=== PATIENT | female | born 1995 | race African-American/Black ===

== ENCOUNTER 2018-08-10 04:49 | Inpatient (IN) | payer OTHER, MEDICAID ==
[~2018-08-10] VITALS: Ht 162.6 cm; Wt 95.3 kg
[2018-08-10 05:37] LABS: Basophils # (auto) 0 uL; Basophils % (auto) 0.2 % (0.0-2.0); Eosinophils # (auto) 0.1 uL; Eosinophils % (auto) 2.1 % (0.0-7.0); Hematocrit 52.9 % (36.0-46.0); Hemoglobin 17.5 g/dL (12.2-16.2); Lymphocytes # (auto) 1.9 uL; Lymphocytes % (auto) 31.5 % (10.0-50.0); Mean Corpuscular Hemoglobin 27.9 pg (28.0-32.0); Mean Corpuscular Volume 84.7 fL (80.0-100.0); Monocytes # (auto) 0.7 uL; Monocytes % (auto) 11.3 % (0.0-12.0); Neutrophils # (auto) 3.2 uL; Neutrophils % (auto) 54.9 % (37.0-80.0); Nucleated Red Blood Cells % 0.2 %; Platelet Count (auto) 278 10^3/uL (140-450); Red Blood Cells 6.25 10^6/uL (4.0-5.20); Red Cell Distribution Width 14.7 % (11.8-14.3); White Blood Cell 5.9 10^3/uL (4.4-10.8)
[2018-08-10 05:51] LABS: Albumin 3.5 g/dL (3.4-5.0); BUN/Creatinine Ratio 62.1; Calcium 9.5 mg/dL (8.5-10.1); Potassium 3.4 mmol/L (3.5-5.1)
[2018-08-10 05:54] LABS: Bilirubin, Total 0.9 mg/dL (0.2-1.0); Total Protein 9.4 g/dL (6.4-8.2)
[2018-08-10] MEDS ORDERED: SODIUM CHLORIDE 0.9% 1,000 ML IV ONE (07:08)
[2018-08-10 07:47] LABS: Beta HCG, Quantitative < 1 mlU/mL (1-3); Thyroid Stimulating Hormone 3.32 uIU/mL (0.358-3.74)
[2018-08-10 08:37] LABS: Urine Amorphous Crystal MOD /hpf (None Seen); Urine Bacteria FEW /hpf (None Seen); Urine Blood 1+ /uL (Negative); Urine Hyaline Cast MANY /lpf (0 - 2); Urine Mucus FEW (None Seen); Urine Specific Gravity 1.032 (1.001-1.035); Urine WBC 30 /hpf (0 - 5)
[2018-08-10] MEDS ORDERED: PROMETHAZINE HCL 25 MG/ML 1ML IV ONE (08:45)
[2018-08-10] MEDS ORDERED: MORPHINE SULFATE 4 MG/ML SYR/VIAL IV ONE (08:45)
[2018-08-10] MEDS ORDERED: cefTRIAXone 1GM/10ml IVPUSH 10 ML IV ONE (10:30)
[2018-08-10] MEDS ORDERED: SODIUM CHLORIDE 0.9% 1,000 ML IVB ONE (11:47)
[2018-08-10] MEDS ORDERED: ONDANSETRON HCL 4 MG/2 ML VIAL IV PRN (12:15)
[2018-08-10] MEDS ORDERED: DOCUSATE SOD 100 MG CAP PO PRN (12:15)
[2018-08-10] MEDS ORDERED: MORPHINE SULFATE 4 MG/ML SYR/VIAL IV PRN (12:15)
[2018-08-10] MEDS ORDERED: NITROGLYCERIN 0.4 MG SL TAB SL PRN (12:15)
[2018-08-10] MEDS ORDERED: predniSONE 20 MG TAB PO ONE (12:15)
[2018-08-10] MEDS ORDERED: ACETAMINOPHEN 325 MG TAB PO PRN (12:15)
[2018-08-10] MEDS ORDERED: VANCOMYCIN PER PHARMACY 0 MG IV SCH (12:15)
[2018-08-10] MEDS ORDERED: POTASSIUM EFFERVESENT TAB 25 MEQ PO ONE (12:15)
[2018-08-10] MEDS ORDERED: TEMAZEPAM 15 MG CAP PO PRN (12:15)
[2018-08-10] MEDS ORDERED: HYDROcodone-ACET 5/325MG TAB PO PRN (12:15)
[2018-08-10] MEDS: ALBUTEROL SULF 2.5 MG/0.5ML(0.5%) NEB SOLN NEB PRN (12:30)
[2018-08-10] MEDS: IPRATROPIUM BROM 0.5 MG/2.5ML INH SOL NEB PRN (12:30)
[2018-08-10] MEDS: VANCOMYCIN 1GM/250ML 250 ML IV SCH ×2 (13:15→21:01)
[2018-08-10 13:40] VITALS: BP 126/83
[2018-08-10] MEDS: SODIUM CHLOR 0.9% PF (SALINE LOCK) 10ML VIAL/SYR IV SCH ×2 (14:22→21:01)
[2018-08-10] MEDS: IPRATROPIUM BROM 0.5 MG/2.5ML INH SOL NEB SCH ×3 (15:17→23:19)
[2018-08-10] MEDS: ALBUTEROL SULF 2.5 MG/0.5ML(0.5%) NEB SOLN NEB SCH ×3 (15:17→23:19)
[2018-08-10] MEDS: GABAPENTIN 300 MG CAP PO SCH ×2 (16:39→21:02)
[2018-08-10 17:00] VITALS: BP 108/81
[2018-08-10 20:00] VITALS: BP 117/91
[2018-08-10] MEDS: FAMOTIDINE 20 MG TAB PO SCH (21:01)
[2018-08-10] MEDS: MORPHINE SULFATE 4 MG/ML SYR/VIAL IV PRN (21:34)
[2018-08-10 22:14] VITALS: BP 117/91
[2018-08-10 23:49] VITALS: BP 117/91
[2018-08-11] MEDS: IPRATROPIUM BROM 0.5 MG/2.5ML INH SOL NEB SCH ×6 (02:00→23:17)
[2018-08-11] MEDS: ALBUTEROL SULF 2.5 MG/0.5ML(0.5%) NEB SOLN NEB SCH ×6 (02:00→23:17)
[2018-08-11 04:57] VITALS: BP 127/82
[2018-08-11] MEDS: VANCOMYCIN 1GM/250ML 250 ML IV SCH (05:15)
[2018-08-11 06:07] LABS: Basophils % (auto) 0.1 % (0.0-2.0); Eosinophils % (auto) 0.4 % (0.0-7.0); Lymphocytes # (auto) 1.4 uL; Lymphocytes % (auto) 18.8 % (10.0-50.0); Neutrophils # (auto) 5.2 uL; Neutrophils % (auto) 71.7 % (37.0-80.0); Nucleated Red Blood Cells % 0.2 %; White Blood Cell 7.2 10^3/uL (4.4-10.8)
[2018-08-11 06:08] LABS: Basophils # (auto) 0 uL; Eosinophils # (auto) 0 uL; Hemoglobin 14.4 g/dL (12.2-16.2); Mean Corpuscular Hgb Conc. 33.4 g/dL (32.0-36.0); Mean Corpuscular Volume 83.8 fL (80.0-100.0); Monocytes # (auto) 0.6 uL; Platelet Count (auto) 231 10^3/uL (140-450); Red Blood Cells 5.13 10^6/uL (4.0-5.20); Red Cell Distribution Width 14.2 % (11.8-14.3)
[2018-08-11] MEDS: SODIUM CHLOR 0.9% PF (SALINE LOCK) 10ML VIAL/SYR IV SCH ×3 (06:24→21:31)
[2018-08-11] MEDS: GABAPENTIN 300 MG CAP PO SCH ×3 (06:25→21:31)
[2018-08-11 06:28] LABS: Albumin 2.8 g/dL (3.4-5.0); BUN/Creatinine Ratio 57.9; Calcium 8.6 mg/dL (8.5-10.1); Potassium 3.4 mmol/L (3.5-5.1)
[2018-08-11 06:31] LABS: Bilirubin, Total 0.6 mg/dL (0.2-1.0); Total Protein 7.6 g/dL (6.4-8.2)
[2018-08-11 08:30] VITALS: BP 153/96
[2018-08-11] MEDS: FAMOTIDINE 20 MG TAB PO SCH ×2 (08:50→21:31)
[2018-08-11] MEDS: cefTRIAXone 1GM/10ml IVPUSH 10 ML IV SCH (08:50)
[2018-08-11] MEDS: MULTIPLE VITAMIN TAB PO SCH (08:50)
[2018-08-11] MEDS ORDERED: cloNIDine HCL 0.1 MG TAB PO PRN (09:30)
[2018-08-11] MEDS ORDERED: predniSONE 20 MG TAB PO SCH (10:00)
[2018-08-11] MEDS: MORPHINE SULFATE 4 MG/ML SYR/VIAL IV PRN (11:02)
[2018-08-11 12:07] VITALS: BP 137/76
[2018-08-11] MEDS: SODIUM CHLORIDE 0.9% 1,000 ML IV SCH (14:15)
[2018-08-11] MEDS ORDERED: POTASSIUM CHL 20 Meq TABLET PO ONE (14:30)
[2018-08-11 16:23] VITALS: BP 128/70
[2018-08-11] MEDS: methylPREDNISolone SOD SUCC 125 MG/2 ML VL IV SCH (21:30)
[2018-08-11 22:00] VITALS: BP 120/60
[2018-08-11] MEDS: IV IMMUNE GLOBULIN(IVIG) 10% 20G/200ML IV SCH (23:04)
[2018-08-12] MEDS: ALBUTEROL SULF 2.5 MG/0.5ML(0.5%) NEB SOLN NEB SCH ×6 (02:00→22:23)
[2018-08-12] MEDS: IPRATROPIUM BROM 0.5 MG/2.5ML INH SOL NEB SCH ×6 (02:00→22:23)
[2018-08-12] MEDS: MORPHINE SULFATE 4 MG/ML SYR/VIAL IV PRN ×3 (02:02→20:16)
[2018-08-12 05:00] VITALS: BP 118/7
[2018-08-12] MEDS: GABAPENTIN 300 MG CAP PO SCH ×3 (06:00→22:06)
[2018-08-12 06:14] LABS: Basophils # (auto) 0 uL; Basophils % (auto) 0.1 % (0.0-2.0); Eosinophils # (auto) 0 uL; Hematocrit 39.5 % (36.0-46.0); Lymphocytes # (auto) 0.4 uL; Mean Corpuscular Volume 85.1 fL (80.0-100.0); Monocytes # (auto) 0.1 uL; Monocytes % (auto) 1.9 % (0.0-12.0); Neutrophils # (auto) 3.5 uL; Nucleated Red Blood Cells % 0.2 %; Platelet Count (auto) 174 10^3/uL (140-450); Red Blood Cells 4.64 10^6/uL (4.0-5.20); Red Cell Distribution Width 13.9 % (11.8-14.3)
[2018-08-12] MEDS: SODIUM CHLOR 0.9% PF (SALINE LOCK) 10ML VIAL/SYR IV SCH ×3 (06:39→22:06)
[2018-08-12] MEDS: methylPREDNISolone SOD SUCC 125 MG/2 ML VL IV SCH ×3 (06:40→22:05)
[2018-08-12 06:51] LABS: Albumin 2.7 g/dL (3.4-5.0); BUN/Creatinine Ratio 52.4; Bilirubin, Total 0.4 mg/dL (0.2-1.0); Calcium 8.3 mg/dL (8.5-10.1); Magnesium 1.9 mg/dL (1.6-2.6); Total Protein 8.4 g/dL (6.4-8.2)
[2018-08-12] MEDS: cefTRIAXone 1GM/10ml IVPUSH 10 ML IV SCH (08:53)
[2018-08-12 08:58] VITALS: BP 124/66
[2018-08-12] MEDS: SODIUM CHLORIDE 0.9% 1,000 ML IV SCH ×2 (10:27→12:44)
[2018-08-12] MEDS: MULTIPLE VITAMIN TAB PO SCH (10:55)
[2018-08-12] MEDS: FAMOTIDINE 20 MG TAB PO SCH ×2 (10:55→22:06)
[2018-08-12] MEDS ORDERED: MAGNESIUM SULFATE 1GM/100ML 100 ML IV ONE (12:15)
[2018-08-12] MEDS ORDERED: SERT-275 PO (12:24)
[2018-08-12] MEDS ORDERED: [UNRECOGNIZED DRUG - CODE] PO (12:24)
[2018-08-12] MEDS ORDERED: CEPH250C PO (12:24)
[2018-08-12] MEDS ORDERED: METO25TA5 PO (12:24)
[2018-08-12] MEDS ORDERED: PRE1T PO (12:24)
[2018-08-12] MEDS ORDERED: MYCO500T PO (12:24)
[2018-08-12] MEDS ORDERED: OME20GT PO (12:24)
[2018-08-12] MEDS ORDERED: ONDA4TAB5 PO (12:24)
[2018-08-12] MEDS ORDERED: FOLITAB22 PO (12:24)
[2018-08-12] MEDS ORDERED: METH2.5T3 PO (12:24)
[2018-08-12] MEDS ORDERED: TRIATAB3 PO (12:24)
[2018-08-12] MEDS ORDERED: CHOL20007 PO (12:24)
[2018-08-12] MEDS ORDERED: LEVO500T21 PO (12:24)
[2018-08-12] MEDS ORDERED: GABA300C PO (12:24)
[2018-08-12 12:52] VITALS: BP 131/81
[2018-08-12 16:39] VITALS: BP 148/97
[2018-08-12 20:00] VITALS: BP 133/92
[2018-08-12 22:00] VITALS: BP 133/92
[2018-08-12] MEDS: IV IMMUNE GLOBULIN(IVIG) 10% 20G/200ML IV SCH (22:06)
[2018-08-13] MEDS: IPRATROPIUM BROM 0.5 MG/2.5ML INH SOL NEB SCH ×6 (02:00→22:00)
[2018-08-13] MEDS: ALBUTEROL SULF 2.5 MG/0.5ML(0.5%) NEB SOLN NEB SCH ×6 (02:00→22:00)
[2018-08-13 05:00] VITALS: BP 120/71
[2018-08-13] MEDS: SODIUM CHLOR 0.9% PF (SALINE LOCK) 10ML VIAL/SYR IV SCH ×3 (06:38→22:00)
[2018-08-13] MEDS: GABAPENTIN 300 MG CAP PO SCH ×3 (06:39→22:52)
[2018-08-13] MEDS: methylPREDNISolone SOD SUCC 125 MG/2 ML VL IV SCH ×2 (06:39→13:47)
[2018-08-13] MEDS: cefTRIAXone 1GM/10ml IVPUSH 10 ML IV SCH (08:48)
[2018-08-13 09:00] VITALS: BP 122/76
[2018-08-13 11:13] LABS: Basophils # (auto) 0 uL; Eosinophils # (auto) 0 uL; Hematocrit 45.2 % (36.0-46.0); Hemoglobin 14.4 g/dL (12.2-16.2); Lymphocytes # (auto) 0.3 uL; Mean Corpuscular Hemoglobin 27.1 pg (28.0-32.0); Mean Corpuscular Hgb Conc. 31.9 g/dL (32.0-36.0); Mean Corpuscular Volume 84.9 fL (80.0-100.0); Monocytes # (auto) 0.3 uL; Neutrophils # (auto) 4.8 uL; Nucleated Red Blood Cells % 0.1 %; Platelet Count (auto) 242 10^3/uL (140-450); Red Blood Cells 5.33 10^6/uL (4.0-5.20); Red Cell Distribution Width 14.3 % (11.8-14.3); White Blood Cell 5.4 10^3/uL (4.4-10.8)
[2018-08-13] MEDS: MULTIPLE VITAMIN TAB PO SCH (11:23)
[2018-08-13] MEDS: FAMOTIDINE 20 MG TAB PO SCH ×2 (11:23→22:52)
[2018-08-13 11:36] LABS: Potassium 3.9 mmol/L (3.5-5.1)
[2018-08-13] MEDS ORDERED: MORPHINE SULFATE 4 MG/ML SYR/VIAL IV PRN (12:45)
[2018-08-13] MEDS ORDERED: DEXTROSE (50%) 50ML SYRG IV PRN (12:45)
[2018-08-13 13:00] VITALS: BP 138/84
[2018-08-13 15:35] LABS: BUN/Creatinine Ratio 25.6
[2018-08-13 15:36] LABS: Albumin 2.6 g/dL (3.4-5.0); Bilirubin, Total 0.3 mg/dL (0.2-1.0); Total Protein 9.2 g/dL (6.4-8.2)
[2018-08-13 17:00] VITALS: BP 135/99
[2018-08-13] MEDS: InsuLIN REG 1unit/0.01ml Soln (100units/ml) SC SCH ×2 (17:00→22:00)
[2018-08-13] MEDS: ACCU-CHEK COMFORT CURVE STRIP VI SCH ×2 (17:08→22:00)
[2018-08-13] MEDS: HYDROcodone-ACET 5/325MG TAB PO PRN (17:09)
[2018-08-13 19:06] LABS: Calcium 7.9 mg/dL (8.5-10.1); Magnesium 2.4 mg/dL (1.6-2.6)
[2018-08-13] MEDS: SODIUM CHLORIDE 0.9% 1,000 ML IV SCH (19:29)
[2018-08-13 20:43] VITALS: BP 135/99
[2018-08-13 22:00] VITALS: BP 135/87
[2018-08-13] MEDS: IV IMMUNE GLOBULIN(IVIG) 10% 20G/200ML IV SCH (22:00)
[2018-08-14] VITALS (7 sets, daily range): BP systolic 135–158; BP diastolic 77–96
[2018-08-14] MEDS: IPRATROPIUM BROM 0.5 MG/2.5ML INH SOL NEB SCH ×5 (02:00→22:10)
[2018-08-14] MEDS: ALBUTEROL SULF 2.5 MG/0.5ML(0.5%) NEB SOLN NEB SCH ×5 (02:00→22:10)
[2018-08-14] MEDS: SODIUM CHLORIDE 0.9% 1,000 ML IV SCH (04:15)
[2018-08-14] MEDS: ALBUTEROL SULF 2.5 MG/0.5ML(0.5%) NEB SOLN NEB PRN (04:28)
[2018-08-14] MEDS: IPRATROPIUM BROM 0.5 MG/2.5ML INH SOL NEB PRN (04:28)
[2018-08-14 05:57] LABS: Albumin 2.4 g/dL (3.4-5.0); BUN/Creatinine Ratio 46.4; Calcium 7.9 mg/dL (8.5-10.1); Potassium 4.1 mmol/L (3.5-5.1)
[2018-08-14] MEDS: SODIUM CHLOR 0.9% PF (SALINE LOCK) 10ML VIAL/SYR IV SCH ×3 (06:00→20:58)
[2018-08-14 06:11] LABS: Bilirubin, Total 0.4 mg/dL (0.2-1.0); Total Protein 9.3 g/dL (6.4-8.2)
[2018-08-14] MEDS: InsuLIN REG 1unit/0.01ml Soln (100units/ml) SC SCH ×4 (07:00→22:00)
[2018-08-14] MEDS: ACCU-CHEK COMFORT CURVE STRIP VI SCH ×4 (07:02→22:19)
[2018-08-14] MEDS: GABAPENTIN 300 MG CAP PO SCH ×3 (07:19→20:58)
[2018-08-14] MEDS: HYDROcodone-ACET 5/325MG TAB PO PRN ×3 (07:19→15:38)
[2018-08-14 10:07] LABS: Hepatitis B Surface Antibody Positive
[2018-08-14] MEDS: ACETYLCYSTEINE 10 %(100MG/ML) SOL 4ML NEB SCH ×3 (10:20→22:10)
[2018-08-14 10:43] LABS: Hepatitis A Total Antibody Positive
[2018-08-14] MEDS: MULTIPLE VITAMIN TAB PO SCH (10:51)
[2018-08-14] MEDS: predniSONE 20 MG TAB PO SCH (10:51)
[2018-08-14] MEDS: FAMOTIDINE 20 MG TAB PO SCH ×2 (10:52→20:58)
[2018-08-14] MEDS: SERTRALINE HCL 50 MG TAB PO SCH (10:52)
[2018-08-14 13:03] LABS: Hepatitis B Surface Antigen Negative (Negative); Hepatitis C Antibody Negative (Negative)
[2018-08-14 13:04] LABS: Hepatitis B Core Total AB Positive
[2018-08-14] MEDS ORDERED: PIPERACILLIN-TAZOB 3.375GM 100 ML IV ONE (19:30)
[2018-08-14] MEDS ORDERED: VANCOMYCIN PER PHARMACY 0 MG IV SCH (19:30)
[2018-08-14] MEDS ORDERED: VANCOMYCIN 1GM/250ML 250 ML IV ONE (20:00)
[2018-08-14] MEDS ORDERED: KETOROLAC TROMETH 30 MG/ML 1ML VIAL IV ONE (20:45)
[2018-08-14] MEDS ORDERED: AZITHROMYCIN 500MG/ 250ML 250 ML IV ONE (22:00)
[2018-08-15] VITALS (10 sets, daily range): BP systolic 105–131; BP diastolic 63–79
[2018-08-15] MEDS: SODIUM CHLORIDE 0.9% 1,000 ML IV SCH (00:24)
[2018-08-15] MEDS: PIPERACILLIN-TAZOB 3.375GM 100 ML IV SCH ×4 (00:25→17:53)
[2018-08-15] MEDS: IV IMMUNE GLOBULIN(IVIG) 10% 20G/200ML IV SCH ×2 (01:49→22:16)
[2018-08-15] MEDS: IPRATROPIUM BROM 0.5 MG/2.5ML INH SOL NEB SCH ×5 (02:35→18:35)
[2018-08-15] MEDS: ACETYLCYSTEINE 10 %(100MG/ML) SOL 4ML NEB SCH ×5 (02:35→18:35)
[2018-08-15] MEDS: ALBUTEROL SULF 2.5 MG/0.5ML(0.5%) NEB SOLN NEB SCH ×5 (02:35→18:35)
[2018-08-15 05:35] LABS: Basophils # (auto) 0 uL; Basophils % (auto) 0.1 % (0.0-2.0); Eosinophils # (auto) 0 uL; Eosinophils % (auto) 0.2 % (0.0-7.0); Hematocrit 35.9 % (36.0-46.0); Hemoglobin 12.1 g/dL (12.2-16.2); Lymphocytes # (auto) 1.2 uL; Lymphocytes % (auto) 14.3 % (10.0-50.0); Mean Corpuscular Hemoglobin 28.5 pg (28.0-32.0); Mean Corpuscular Hgb Conc. 33.6 g/dL (32.0-36.0); Mean Corpuscular Volume 84.6 fL (80.0-100.0); Monocytes # (auto) 0.9 uL; Monocytes % (auto) 11.2 % (0.0-12.0); Neutrophils % (auto) 74.2 % (37.0-80.0); Nucleated Red Blood Cells % 0.2 %; Platelet Count (auto) 217 10^3/uL (140-450); Red Blood Cells 4.25 10^6/uL (4.0-5.20); Red Cell Distribution Width 14.3 % (11.8-14.3); White Blood Cell 8.1 10^3/uL (4.4-10.8)
[2018-08-15] MEDS: GABAPENTIN 300 MG CAP PO SCH ×3 (05:53→22:15)
[2018-08-15 05:55] LABS: BUN/Creatinine Ratio 53.6; Calcium 7.5 mg/dL (8.5-10.1); Potassium 3.8 mmol/L (3.5-5.1)
[2018-08-15] MEDS: SODIUM CHLOR 0.9% PF (SALINE LOCK) 10ML VIAL/SYR IV SCH ×3 (05:55→22:16)
[2018-08-15] MEDS: ACCU-CHEK COMFORT CURVE STRIP VI SCH ×4 (05:55→22:16)
[2018-08-15] MEDS: InsuLIN REG 1unit/0.01ml Soln (100units/ml) SC SCH ×4 (05:59→22:21)
[2018-08-15 06:15] LABS: Bilirubin, Direct 0.2 mg/dL (0-0.2)
[2018-08-15 06:36] LABS: Bilirubin, Total 0.6 mg/dL (0.2-1.0); Total Protein 8.3 g/dL (6.4-8.2)
[2018-08-15] MEDS ORDERED: VANCOMYCIN 1GM/250ML 250 ML IV SCH (09:00)
[2018-08-15] MEDS: MULTIPLE VITAMIN TAB PO SCH (10:32)
[2018-08-15] MEDS: FAMOTIDINE 20 MG TAB PO SCH ×2 (10:32→22:15)
[2018-08-15] MEDS: AZITHROMYCIN 500MG/ 250ML 250 ML IV SCH (10:32)
[2018-08-15] MEDS: SERTRALINE HCL 50 MG TAB PO SCH (10:32)
[2018-08-15] MEDS: predniSONE 20 MG TAB PO SCH (10:32)
[2018-08-15] MEDS: HYDROcodone-ACET 5/325MG TAB PO PRN ×2 (10:40→23:38)
[2018-08-15] MEDS: methylPREDNISolone SOD SUCC 125 MG/2 ML VL IV SCH ×2 (14:04→22:15)
[2018-08-16] VITALS (9 sets, daily range): BP systolic 108–131; BP diastolic 56–96
[2018-08-16] MEDS: IPRATROPIUM BROM 0.5 MG/2.5ML INH SOL NEB SCH ×4 (00:07→09:22)
[2018-08-16] MEDS: ALBUTEROL SULF 2.5 MG/0.5ML(0.5%) NEB SOLN NEB SCH ×4 (00:07→09:22)
[2018-08-16] MEDS: ACETYLCYSTEINE 10 %(100MG/ML) SOL 4ML NEB SCH ×4 (00:07→09:22)
[2018-08-16] MEDS: PIPERACILLIN-TAZOB 3.375GM 100 ML IV SCH ×5 (00:34→17:35)
[2018-08-16] MEDS: SODIUM CHLOR 0.9% PF (SALINE LOCK) 10ML VIAL/SYR IV SCH ×2 (05:23→13:09)
[2018-08-16] MEDS: methylPREDNISolone SOD SUCC 125 MG/2 ML VL IV SCH (05:23)
[2018-08-16 05:36] LABS: Basophils # (auto) 0 uL; Basophils % (auto) 0.1 % (0.0-2.0); Eosinophils # (auto) 0 uL; Lymphocytes # (auto) 0.5 uL; Lymphocytes % (auto) 5.1 % (10.0-50.0); Mean Corpuscular Hemoglobin 27.9 pg (28.0-32.0); Mean Corpuscular Hgb Conc. 33.3 g/dL (32.0-36.0); Mean Corpuscular Volume 83.9 fL (80.0-100.0); Monocytes # (auto) 0.3 uL; Monocytes % (auto) 2.8 % (0.0-12.0); Neutrophils # (auto) 8.2 uL; Platelet Count (auto) 260 10^3/uL (140-450); Red Cell Distribution Width 14.4 % (11.8-14.3); White Blood Cell 8.9 10^3/uL (4.4-10.8)
[2018-08-16 05:45] LABS: Albumin 1.9 g/dL (3.4-5.0); Calcium 7.5 mg/dL (8.5-10.1); Potassium 4.1 mmol/L (3.5-5.1)
[2018-08-16 06:00] LABS: Bilirubin, Total 0.8 mg/dL (0.2-1.0); Total Protein 8.5 g/dL (6.4-8.2)
[2018-08-16] MEDS: GABAPENTIN 300 MG CAP PO SCH ×3 (06:00→21:41)
[2018-08-16] MEDS: ACCU-CHEK COMFORT CURVE STRIP VI SCH ×4 (06:04→21:41)
[2018-08-16] MEDS: InsuLIN REG 1unit/0.01ml Soln (100units/ml) SC SCH ×4 (06:04→21:41)
[2018-08-16] MEDS: MULTIPLE VITAMIN TAB PO SCH (09:08)
[2018-08-16] MEDS: SERTRALINE HCL 50 MG TAB PO SCH (09:08)
[2018-08-16] MEDS: FAMOTIDINE 20 MG TAB PO SCH ×2 (09:08→21:40)
[2018-08-16] MEDS: AZITHROMYCIN 500MG/ 250ML 250 ML IV SCH (09:08)
[2018-08-16] MEDS ORDERED: ENOXAPARIN SOD 40 MG/0.4 ML SYRINGE SC SCH (10:00)
[2018-08-16] MEDS ORDERED: ALBUTEROL SULF 2.5 MG/0.5ML(0.5%) NEB SOLN NEB PRN (13:00)
[2018-08-16] MEDS ORDERED: MORPHINE SULFATE 4 MG/ML SYR/VIAL IV PRN (13:00)
[2018-08-16] MEDS ORDERED: LORazepam 2MG/ML-1ML VIAL IV PRN (13:00)
[2018-08-16] MEDS: IPRATROPIUM BROM 0.5 MG/2.5ML INH SOL NEB PRN (13:01)
[2018-08-16] MEDS ORDERED: methylPREDNISolone SOD SUCC 125 MG/2 ML VL IV ONE (13:30)
[2018-08-16] MEDS ORDERED: ACETYLCYSTEINE 10 %(100MG/ML) SOL 4ML NEB SCH (16:00)
[2018-08-16] MEDS ORDERED: IPRATROPIUM BROM 0.5 MG/2.5ML INH SOL NEB SCH (16:00)
[2018-08-16] MEDS: SODIUM CHLORIDE 0.9% 1,000 ML IV SCH ×2 (16:15→16:53)
[2018-08-16] MEDS: HYDROcodone-ACET 5/325MG TAB PO PRN ×2 (17:34→22:23)
[2018-08-16] MEDS ORDERED: LEVALBUTEROL HCL 1.25 MG/3 ML NEB NEB SCH (18:00)
[2018-08-16] MEDS ORDERED: methylPREDNISolone SOD SUCC 40 MG/ML VL IV SCH (22:00)
== END 2018-08-16 23:18 | disposition home or self-care (01) | DRG 720 ==
LOC: ER 04:49 → EDBD 04:49 → TELE 04:50 → TELE-EAST 13:35 → DOU IN ICU 08-14 18:53
PROVIDERS: ADMIT Internal Medicine; ATTEND Internal Medicine
PROC: 5A09357 Assistance with Respiratory Ventilation, Less than 24 Consecutive Hours, Continuous Positive Airway Pressure (ICD-10-PCS; principal; 2018-08-14)
PROC: 5A09357 Assistance with Respiratory Ventilation, Less than 24 Consecutive Hours, Continuous Positive Airway Pressure (ICD-10-PCS; 2018-08-16)
DX: A41.9 Sepsis, unspecified organism (principal); J96.00 Acute respiratory failure, unspecified whether with hypoxia or hypercapnia; J69.0 Pneumonitis due to inhalation of food and vomit; M33.20 Polymyositis, organ involvement unspecified; D75.1 Secondary polycythemia; E87.6 Hypokalemia; N39.0 Urinary tract infection, site not specified; I11.9 Hypertensive heart disease without heart failure; E66.9 Obesity, unspecified; M43.6 Torticollis; T38.0X5A Adverse effect of glucocorticoids and synthetic analogues, initial encounter; M47.894 Other spondylosis, thoracic region; Z79.4 Long term (current) use of insulin; Z79.52 Long term (current) use of systemic steroids; Z99.3 Dependence on wheelchair; Z82.49 Family history of ischemic heart disease and other diseases of the circulatory system; Z83.3 Family history of diabetes mellitus; Z79.899 Other long term (current) drug therapy; Y92.89 Other specified places as the place of occurrence of the external cause
CPT/HCPCS: 31720; 36415; 36600; 51702; 70450; 71045; 72125; 80048; 80053; 80076; 80202; 81001; 82550; 82805; 82962; 83605; 83735; 83880; 84443; 84702; 85025; 85652; 86704; 86706; 86708; 86803; 87040; 87081; 87086; 87340; 92610; 93005; 94640; 94660; 94668; 94761; 96374; 96375; 97110; 97530; J0696; J1561; J1815; J1885; J2543

== ENCOUNTER 2019-09-12 08:01 | Emergency (ER) | payer MEDICAID ==
[~2019-09-12] VITALS: Ht 165.1 cm; Wt 90.7 kg
[~2019-09-12 08:01] MED LIST: CEPH250C PO; CHOL20007 PO; FOLITAB22 PO; GABA300C PO; LEVO500T21 PO; METH2.5T3 PO; METO25TA5 PO; MYCO500T PO; OME20GT PO; ONDA-144 PO; PRE1T PO; SERT-275 PO; TRIATAB3 PO; [UNRECOGNIZED DRUG - CODE] PO
[2019-09-12 09:15] LABS: Basophils # (auto) 0 uL; Basophils % (auto) 0.2 % (0.0-2.0); Eosinophils # (auto) 0 uL; Eosinophils % (auto) 0.1 % (0.0-7.0); Hemoglobin 13.4 g/dL (12.2-16.2); Lymphocytes % (auto) 51.3 % (10.0-50.0); Mean Corpuscular Hemoglobin 27.1 pg (28.0-32.0); Mean Corpuscular Hgb Conc. 31.8 g/dL (32.0-36.0); Mean Corpuscular Volume 85.3 fL (80.0-100.0); Monocytes # (auto) 0.7 uL; Monocytes % (auto) 8.6 % (0.0-12.0); Neutrophils # (auto) 3.1 uL; Neutrophils % (auto) 39.8 % (37.0-80.0); Nucleated Red Blood Cells % 0.3 %; Platelet Count (auto) 233 10^3/uL (140-450); Red Blood Cells 4.93 10^6/uL (4.0-5.20); Red Cell Distribution Width 16.3 % (11.8-14.3); White Blood Cell 7.7 10^3/uL (4.4-10.8)
[2019-09-12 11:01] LABS: Albumin 2.9 g/dL (3.4-5.0)
[2019-09-12 11:06] LABS: BUN/Creatinine Ratio 23.5; Bilirubin, Total 0.3 mg/dL (0.2-1.0); Total Protein 7.7 g/dL (6.4-8.2)
[2019-09-12 11:12] LABS: Potassium 2.9 mmol/L (3.5-5.1)
[2019-09-12] MEDS ORDERED: POTASSIUM EFFERVESENT TAB 25 MEQ PO ONE (13:15)
[2019-09-12] MEDS ORDERED: cefTRIAXone 1GM/50ML D5W 50 ML IV ONE (13:15)
[2019-09-12] MEDS ORDERED: HYDROcodone-ACET 5/325MG TAB PO PRN (15:00)
[2019-09-12] MEDS ORDERED: ONDANSETRON HCL 4 MG/2 ML VIAL IV PRN (15:00)
[2019-09-12] MEDS ORDERED: NITROGLYCERIN 0.4 MG SL TAB SL PRN (15:00)
[2019-09-12] MEDS ORDERED: ACETAMINOPHEN 500 MG TAB PO PRN (15:00)
[2019-09-12] MEDS ORDERED: MORPHINE SULF INJ 2 MG/ML SYRINGE 1ML IV PRN ×2 (15:00)
[2019-09-12 15:06] VITALS: BP 124/70
[2019-09-12] MEDS ORDERED: SERTRALINE PO SCH (15:30)
[2019-09-12 16:00] VITALS: BP 115/68
[2019-09-12] MEDS ORDERED: ALBUTEROL SULF 2.5 MG/0.5ML(0.5%) NEB SOLN NEB SCH (18:00)
[2019-09-12] MEDS ORDERED: IPRATROPIUM BROM 0.5 MG/2.5ML INH SOL NEB SCH (18:00)
[2019-09-12] MEDS ORDERED: GABAPENTIN 300 MG CAP PO SCH (22:00)
[2019-09-13] MEDS ORDERED: cefTRIAXone 1GM/50ML D5W 50 ML IV SCH (09:00)
[2019-09-13] MEDS ORDERED: FAMOTIDINE 20 MG TAB PO SCH (10:00)
[2019-09-13] MEDS ORDERED: AZITHROMYCIN 500MG/ 250ML 250 ML IV SCH (10:00)
[2019-09-13] MEDS ORDERED: SERTRALINE PO SCH (10:00)
== END 2019-09-12 17:47 | disposition home or self-care (01) ==
LOC: EDBD 08:01 → ER 08:03
DX: J18.9 Pneumonia, unspecified organism (principal); J90 Pleural effusion, not elsewhere classified; R53.2 Functional quadriplegia; M60.9 Myositis, unspecified; E87.6 Hypokalemia; E44.0 Moderate protein-calorie malnutrition; R74.8 Abnormal levels of other serum enzymes; N39.0 Urinary tract infection, site not specified; K21.9 Gastro-esophageal reflux disease without esophagitis; I10 Essential (primary) hypertension; Z68.33 Body mass index [BMI] 33.0-33.9, adult
CPT/HCPCS: 36415; 71046; 80053; 81002; 81025; 84484; 85025; 87040; 93005; 96365; 99284; J0696